=== PATIENT | female | born 1970 | race Caucasian/White ===

== ENCOUNTER 2016-12-11 11:46 | Outpatient (CLI) ==
[2016-07-14 18:26] VITALS: BMI 19.8
[2016-12-11 12:18] LABS: CREATININE 0.68 mg/dL (0.60-1.30)
--- NOTE | 2016-12-11 13:00 | DI ---
EXAM: Two views of the right knee. History: Right knee pain. Comparison: Right knee radiograph 05/13/2013 Findings: No acute fracture or dislocation. Joint spaces are relatively preserved. Tiny superior patellar enthesiophyte. Impression: No acute osseous abnormality and no significant degenerative joint disease.
--- NOTE | 2016-12-11 13:02 | DI ---
EXAM: Two views of the left knee. History: Left knee pain. Findings: No acute fracture or dislocation. No abnormal calcifications or radiopaque foreign bodies . Joint spaces are relatively preserved. Impression: No acute osseous abnormality and no significant degenerative joint disease.
--- NOTE | 2016-12-11 21:47 | MRI ---
EXAM: Lumbar spine MRI with and without contrast. HISTORY: Lumbar spinal stenosis. Lumbar disc degeneration. COMPARISON: None. TECHNIQUE: Multiplanar, multisequence MR images were acquired of the lumbar spine before and after administration of intravenous contrast. FINDINGS: Five lumbar-type vertebra are present. There is mild accentuation of the usual lumbar lo rdosis and 2 mm retrolisthesis of L5 on S1. The superior endplate of S1 is mildly smaller than the inferior endplate of L5. The lumbar vertebra are normal in height and intrinsic bone marrow signal. There is minor lumbar ventral spondylosis. Mild disc space narrowing and developing disc dessicati on is present at L3-4 and there is disc desiccation at L4-5. At L5-S1, there is minor disc space na rrowing that is greatest posteriorly. Conus medullaris ends at L1 and has normal signal intensity an d no abnormal contrast enhancement. There are no paravertebral masses. The visualized liver, spleen and kidneys are unremarkable. T12-L1: The intervertebral disc is normal. L1-2: The intervertebral disc is normal. L2-3: The intervertebral disc is normal. There is no central canal stenosis or foraminal stenosis. L3-4: There is a mild disc bulge and bilateral hypertrophic facet arthropathy and ligamentum flavum hypertrophy. This causes mild right neural foraminal stenosis. There is no central canal stenosis . L4-5: There is a mild disc bulge that is asymmetric to the left with an enhancing left lateral maria elena lar fissure . Moderate bilateral hypertrophic facet arthropathy and ligamentum flavum hypertrophy i s present and there is minor right and mild left neural foraminal stenosis. There is no central can al stenosis. L5-S1: There is retrolisthesis of L5 on S1 and there is a mild diffuse disc bulge. Bilateral hyper trophic facet arthropathy is present and there is mild bilateral neural foraminal stenosis, greater on the left. IMPRESSION: 1. Mild lumbar degenerative spondylosis. 2. No lumbar disc herniations, pars interarticularis defects or central canal stenosis.
== END 2016-12-11 11:47 | disposition home or self-care (01) ==
LOC: RAD 11:46
PROVIDERS: ATTEND Pain Medicine Interventional Pain Medicine
DX: M48.06 Spinal stenosis, lumbar region (principal); M50.30 Other cervical disc degeneration, unspecified cervical region; M51.34 Other intervertebral disc degeneration, thoracic region; M51.36 Other intervertebral disc degeneration, lumbar region; M17.11 Unilateral primary osteoarthritis, right knee; M17.12 Unilateral primary osteoarthritis, left knee
CPT/HCPCS: 36415; 82565

== ENCOUNTER 2017-06-26 12:38 | Outpatient (CLI) ==
[2016-07-14 18:26] VITALS: BMI 19.8
[2017-06-26 13:46] LABS: ALBUMIN 3.2 g/dL (3.4-5.0); ALBUMIN/GLOBULIN RATIO 0.91; ANION GAP 12.5; BILIRUBIN,DIRECT 0.13 mg/dL (0.00-0.30); BILIRUBIN,TOTAL 0.24 mg/dL (0.00-1.20); BUN/CREATININE RATIO 19.4; CALCIUM 9.1 mg/dL (8.2-10.2); CREATININE 0.67 mg/dL (0.60-1.30); PHOSPHORUS 2.4 mg/dL (2.5-4.9); POTASSIUM 3.5 mmol/L (3.5-5.10); TOTAL PROTEIN 6.7 g/dL (6.4-8.2)
== END 2017-06-26 12:39 | disposition home or self-care (01) ==
LOC: LAB 12:38
PROVIDERS: ATTEND Pain Medicine Interventional Pain Medicine
DX: Z51.81 Encounter for therapeutic drug level monitoring (principal); Z79.891 Long term (current) use of opiate analgesic; F19.20 Other psychoactive substance dependence, uncomplicated
CPT/HCPCS: 36415; 80053; 82248; 84100

== ENCOUNTER 2017-07-01 23:05 | Emergency (ER) ==
[2017-07-01] MEDS ORDERED: SODIUM CHLORIDE 1,000 ML IV STA (23:08)
[2017-07-01] MEDS ORDERED: NITROSTAT SL STA (23:14)
[2017-07-01] MEDS ORDERED: ASPIRIN CHEWABLE PO STA (23:14)
[2017-07-01] MEDS ORDERED: ZOFRAN 4 MG/2 ML IVP STA (23:15)
[2017-07-01] MEDS ORDERED: MORPHINE 2 MG/ML SYRINGE IVP STA (23:15)
[2017-07-01 23:17] VITALS: BP 120/74; TEMP 97.9; BMI 20.7
[2017-07-01 23:21] LABS: BASOPHILS % (AUTO) 0.4 % (0.0-3.0); EOSINOPHILS # (AUTO) 0.2 K/ul (0.0-0.7); EOSINOPHILS % (AUTO) 2.8 % (0.0-7.0); HEMATOCRIT 31.6 % (37.0-47.0); HEMOGLOBIN 10.3 g/dl (12.0-16.0); IMMATURE GRANULOCYTE % (AUTO) 0.3 % (0.0-5.0); LYMPHOCYTES # (AUTO) 2.3 K/uL (0.60-3.4); LYMPHOCYTES % (AUTO) 31.8 (10.0-50.0); MEAN CORPUSCULAR HEMOGLOBIN 27.3 pg (27.0-31.0); MEAN CORPUSCULAR HGB CONC 32.6 (31.8-35.4); MEAN CORPUSCULAR VOLUME 83.8 fl (81.0-99.0); MONOCYTES # (AUTO) 0.4 K/uL (0.4-2.0); NEUTROPHILS # (AUTO) 4.3 K/ul (2.0-6.9); NEUTROPHILS % (AUTO) 59.7; PLATELET COUNT 261 10^3/uL (140-440); RED BLOOD COUNT 3.77 10^6/ul (4.20-5.40); WHITE BLOOD COUNT 7.24 K/ul (4.6-10.2)
[2017-07-01 23:45] LABS: ALANINE AMINOTRANSFERASE 13 U/L (12-78); ALBUMIN 3.3 g/dL (3.4-5.0); ALBUMIN/GLOBULIN RATIO 0.94; ALKALINE PHOSPHATASE 91 U/L (42-98); ANION GAP 13.2; ASPARTATE AMINO TRANSFERASE 16 U/L (15-37); BILIRUBIN,TOTAL 0.31 mg/dL (0.00-1.20); BLOOD UREA NITROGEN 18 mg/dL (7-18); BUN/CREATININE RATIO 21.68; CALCIUM 9.4 mg/dL (8.2-10.2); CARBON DIOXIDE 26 mmol/L (21-32); CHLORIDE 105 mmol/L (98-107); CREATINE KINASE 85 U/L; CREATININE 0.83 mg/dL (0.60-1.30); GLUCOSE 113 mg/dL (70-110); POTASSIUM 4.2 mmol/L (3.5-5.10); SODIUM 140 mmol/L (136-145); TOTAL PROTEIN 6.8 g/dL (6.4-8.2)
--- NOTE | 2017-07-02 00:41 | ED.PDOC ---
General ED Provider: Dr. SHERON MACIEL Chief Complaint: Chest Pain Stated Complaint: patient is a 47 year old female who comes to the ER with one day onset of left sided chest pain, back pain and neck pain. Had injections to neck recently. states that her symptoms have progressively gotten worse since then. Time Seen by Physician: 23:15 Mode of Arrival: Walk-In Information Source: Patient Exam Limitations: No limitations Primary Care Provider: BRAYAN LAUREANO Nursing and Triage Documentation Reviewed and Agree: Yes Cardiovascular Complaint Exam - Chest Pain Complaint/Exam Onset: Gradual Duration: 1 day Symptoms Are: Still present Timing: Constant Initial Severity: Moderate Current Severity: Severe Location: Reports: Left anterior, Left lateral Pain Radiates: Reports: None Character: Reports: Aching Aggravating: Reports: Exertion Alleviating: Reports: None Associated Signs and Symptoms: Denies: Diaphoresis, Nausea, Vomiting, Fever, Palpitations, Cough, Hemoptysis, Back pain, Abdominal pain, Dizziness, Short of air, Calf pain, Calf swelling Related History: Reports: Similar episode AMI/ACS Risk Factors: Reports: Smoking TAD Risk Factors: Reports: Smoking Prior Care for this Complaint: No Recent Stress Test: No Recent Echo/LV Function: No JVD Present: No Subcutaneous Emphysema Present: No Diminshed Breath Sounds: Yes Reproducible Chest Wall Pain: No Bilateral Pulses Present: No Unequal Pulses Noted: No If Risk Factors for AMI/ACS Consider: Cardiac 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: No Differential Diagnoses: Unstable Angina, Chest Wall Pain Quality Indicators For Acute ME or Cardiac Chest Pain: EKG in 10min., ASA if indicated Review of Systems - Review Of Systems Constitutional: Reports: No symptoms Eyes: Reports: No symptoms Ears, Nose, Mouth, Throat: Reports: No symptoms Respiratory: Reports: No symptoms Cardiac: Reports: Chest pain GI: Reports: No symptoms : Reports: No symptoms Musculoskeletal: Reports: Joint pain, Neck pain Skin: Reports: No symptoms Neurological: Reports: Anxiety Endocrine: Reports: No symptoms Hematologic/Lymphatic: Reports: No symptoms All Other Systems: Reviewed and Negative Past Medical History - Past Medical History Endocrine: Reports: None Cardiovascular: Reports: None Respiratory: Reports: None Hematological: Reports: None Gastrointestinal: Reports: None Genitourinary: Reports: None Neuro/Psych: Reports: None Musculoskeletal: Reports: Arthritis, Back Pain Cancer: Reports: None Last Menstrual Period: 3 weeks ago - Surgical History General Surgical History: Reports: Tubal ligation - Family History Family History: Reports: None - Social History Smoking Status: Current every day smoker Hx Substance Use: No Alcohol Screening: None - Immunizations Tetanus Shot up to Date: Yes Physical Exam - Physical Exam Appearance: Ill-appearing, Thin Ill-appearing: Mild Pain Distress: Severe Eyes: REJI, EOMI, Conjunctiva clear ENT: Ears normal, Nose normal, Oropharynx normal Neck: Supple Respiratory: Airway patent, Breath sounds equal, Breath sounds diminished, Respirations nonlabored Cardiovascular: RRR, Pulses normal, No rub, No murmur GI/: Soft, Nontender, No masses, Bowel sounds normal, No Organomegaly Musculoskeletal: Normal strength, ROM intact, No edema, No calf tenderness Skin: Warm, Dry, Normal color Neurological: Sensation intact, Motor intact, Cranial nerves intact, Alert, Oriented Psychiatric: Anxious Interpretation - Radiology Interpretation Radiology Interpretation By: ED Physician Radiology Results: Negative Exam Interpreted: Portable CXR - Bankruptcy Manager Rate: Normal Rhythm: Sinus Ectopy: None - EKG Interpretation Time of EKG #1: 23:05 Rate: Normal Rhythm: Sinus Interpretation: Bilateral Atrial Enlargement Re-Evaluation - Re-Evaluation Time of Re-Evaluation: 01:06 Status: Improved Vital Signs Stable: Yes Pain Level: much improved Critical Care Note - Critical Care Note Total Time (mins): 0 Course - Course Hematology/Chemistry: 07/01/17 23:17 07/01/17 23:17 Orders, Labs, Meds: Lab Review 07/01/17 07/01/17 07/02/17 23:17 23:17 00:45 WBC 7.24 RBC 3.77 L Hgb 10.3 L Hct 31.6 L MCV 83.8 MCH 27.3 MCHC 32.6 RDW Coeff of Dorothy 13.9 Plt Count 261 Immature Gran % (Auto) 0.3 Neut % (Auto) 59.7 Lymph % (Auto) 31.8 [place] % (Auto) 5.0 Eos % (Auto) 2.8 Baso % (Auto) 0.4 Immature Gran # (Auto) 0.0 Neut # 4.3 Lymph # 2.3 [place] # 0.4 Eos # 0.2 Baso # 0.0 D-Dimer (Manual) Sodium 140 Potassium 4.2 Chloride 105 Carbon Dioxide 26 Anion Gap 13.2 BUN 18 Creatinine 0.83 Estimated GFR (MDRD) 73.00 BUN/Creatinine Ratio 21.68 Glucose 113 H Calcium 9.4 Total Bilirubin 0.31 AST 16 ALT 13 Alkaline Phosphatase 91 Total Creatine Kinase 85 Troponin I < 0.0100 < 0.0100 Total Protein 6.8 Albumin 3.3 L Globulin 3.5 Albumin/Globulin Ratio 0.94 07/02/17 01:11 WBC RBC Hgb Hct MCV MCH MCHC RDW Coeff of Dorothy Plt Count Immature Gran % (Auto) Neut % (Auto) Lymph % (Auto) [place] % (Auto) Eos % (Auto) Baso % (Auto) Immature Gran # (Auto) Neut # Lymph # [place] # Eos # Baso # D-Dimer (Manual) 368.13 Sodium Potassium Chloride Carbon Dioxide Anion Gap BUN Creatinine Estimated GFR (MDRD) BUN/Creatinine Ratio Glucose Calcium Total Bilirubin AST ALT Alkaline Phosphatase Total Creatine Kinase Troponin I Total Protein Albumin Globulin Albumin/Globulin Ratio Orders Category Date Time Status EKG-(ED ONLY) Stat CARDIO 07/01/17 23:08 Completed ED APPLY O2 .ONCE EMERGENCY 07/01/17 23:08 Active ED IV/MEDIPORT/POWERPORT .ONCE EMERGENCY 07/01/17 23:08 Active CBC W/ AUTO DIFF Stat LAB 07/01/17 23:17 Completed COMPREHENSIVE METABOLIC PANEL Stat LAB 07/01/17 23:17 Completed CREATINE KINASE Stat LAB 07/01/17 23:17 Completed D-DIMER Stat LAB 07/02/17 01:11 Completed TROPONIN I Stat LAB 07/01/17 23:17 Completed TROPONIN I Stat LAB 07/02/17 00:45 Completed 0.9 % Sodium Chloride [Saline Flush] MEDS 07/01/17 23:08 Discontinued 1 syr IVF PRN PRN Aspirin [Aspirin Chewable] MEDS 07/01/17 23:14 Discontinued 324 mg PO ONCE STA Morphine Sulfate [Morphine 2 mg/ml Syringe] MEDS 07/01/17 23:15 Discontinued 2 mg IVP ONCE STA Nitroglycerin [Nitrostat] MEDS 07/01/17 23:14 Discontinued 0.4 mg SL ONCE STA Ondansetron HCl/Pf [Zofran 4 mg/2 ml] MEDS 07/01/17 23:15 Discontinued 4 mg IVP ONCE STA Sodium Chloride 0.9% [Sodium Chloride] 1,000 ml MEDS 07/01/17 23:08 Discontinued IV 125 mls/hr CHEST, 1V AP ONLY Stat RADS 07/01/17 23:08 Taken Medications Discontinued Medications Generic Name Dose Route Start Last Admin Trade Name Freq PRN Reason Stop Dose Admin Aspirin 324 mg 07/01/17 23:14 07/01/17 23:31 Aspirin Chewable PO 07/01/17 23:15 324 mg ONCE STA Administration Sodium Chloride 1,000 mls @ 125 mls/hr 07/01/17 23:08 07/01/17 23:32 Sodium Chloride IV 07/02/17 07:07 125 mls/hr .Q8H STA Administration Morphine Sulfate 2 mg 07/01/17 23:15 07/01/17 23:32 Morphine 2 Mg/Ml Syringe IVP 07/01/17 23:16 2 mg ONCE STA Administration Nitroglycerin 0.4 mg 07/01/17 23:14 07/01/17 23:32 Nitrostat SL 07/01/17 23:15 0.4 mg ONCE STA Administration Ondansetron HCl 4 mg 07/01/17 23:15 07/01/17 23:32 Zofran 4 Mg/2 Ml IVP 07/01/17 23:16 4 mg ONCE STA Administration Sodium Chloride 1 syr 07/01/17 23:08 07/01/17 23:32 Saline Flush IVF 1 syr PRN PRN Administration To flush IV Vital Signs: Temp Pulse Resp BP Pulse Ox 07/01/17 23:06 97.9 F 112 H 24 120/74 97 MANOJ Risk Score Age >/= 65: No >/= 3 CAD Risk Factors: No Known CAD (Stenosis >/= 50%): No ASA Use in Past 7 Days: No Severe Angina (>/= 2 episodes in 24 hours): No EKG ST Changes >/= 0.5mm: No Postive Cardiac Marker: No MANOJ Total Score: 0 MANOJ Risk Score: Risk Score Odds of by 30D 0 0.1 (0.1-0.2) 1 0.3 (0.2-0.3) 2 0.4 (0.3-0.5) 3 0.7 (0.6-0.9) 4 1.2 (1.0-1.5) 5 2.2 (1.9-2.6) 6 3.0 (2.5-3.6) 7 4.8 (3.8-6.1) Departure - Departure Time of Disposition: 01:06 Disposition: HOME SELF-CARE Discharge Problem: Chest pain Instructions: Chest Pain (ED) Condition: Fair Pt referred to PMD for follow-up: Yes Additional Instructions: Stop smoking Follow up with PCP In 3 days Return if worse. Allergies/Adverse Reactions: Allergies No Known Allergies Allergy (Verified 07/14/16 18:24) Home Medications: Ambulatory Orders Cyclobenzaprine HCl [Flexeril] 10 mg PO DAILY 02/21/14 Gabapentin [Neurontin] 100 mg PO DAILY 02/21/14 Oxycodone-Acetaminophen 5-325 [Percocet 5-325] 1 tab PO Q6H PRN #15 tablet 07/14 Disposition Discussed With: Patient, Family
--- NOTE | 2017-07-02 07:07 | DI ---
EXAM: Chest one view, frontal view only. HISTORY: Chest pain. COMPARISON: 09/04/2011. FINDINGS: The heart size is normal. There is no pulmonary vascular congestion. The lungs are clear . No pleural effusion or pneumothorax is seen. No acute osseous abnormality is identified. ACDF ch anges noted. Since the prior study, there has been no significant interval change. IMPRESSION: No acute cardiopulmonary process.
== END 2017-07-02 02:00 | disposition home or self-care (01) ==
LOC: ED 23:05
DX: R07.9 Chest pain, unspecified (principal); F17.210 Nicotine dependence, cigarettes, uncomplicated; M54.2 Cervicalgia; M54.9 Dorsalgia, unspecified
CPT/HCPCS: 36415; 80053; 82550; 84484; 85025; 85379; 93005; 93010; 96361; 96374; 96375; 99283